=== PATIENT | male | born 1990 | race Caucasian/White ===

== ENCOUNTER 2019-11-03 07:54 | Emergency (ER) | payer MEDICAID ==
[~2019-11-03] VITALS: Ht 167.6 cm; Wt 85.0 kg
[2019-11-03] MEDS ORDERED: CefTRIAXone 1000mg IM Kit (w/lidocaine diluent) IM ONE (08:15)
[2019-11-03] MEDS ORDERED: azithromycin 250mg tablet PO ONE (08:15)
[2019-11-03] MEDS ORDERED: metroNIDAZOLE 500mg tablet PO ONE (08:15)
[2019-11-03 08:23] LABS: CLARITY,URINE CLEAR (Clear); COLOR,URINE YELLOW (Yellow); GLUCOSE, URINE NEGATIVE (Neg); KETONES,URINE NEGATIVE (Neg); LEUKOCYTE ESTERASE ,URINE NEGATIVE (Neg); NITRITES, URINE NEGATIVE (Neg); OCCULT BLOOD,URINE NEGATIVE (Neg); PROTEIN,URINE NEGATIVE (Neg)
[2019-11-03 08:26] LABS: UA COLLECTION TYPE CLN CATCH MIDSTREAM
[2019-11-03] MEDS ORDERED: ACYC-1 PO (09:07)
[2019-11-03 09:25] VITALS: BP 119/68
== END 2019-11-03 09:26 | disposition home or self-care (01) ==
LOC: ER 07:55
DX: A60.01 Herpesviral infection of penis (principal); R52 Pain, unspecified; R30.9 Painful micturition, unspecified; F17.200 Nicotine dependence, unspecified, uncomplicated; Z79.2 Long term (current) use of antibiotics
CPT/HCPCS: 36415; 81003; 87491; 87591; 96372; 99283; J0696; J3490

== ENCOUNTER 2019-12-22 16:51 | Inpatient (IN) | payer MEDICAID ==
[~2019-12-22] VITALS: Ht 170.2 cm; Wt 125.0 kg
[~2019-12-22 16:51] MED LIST: calcium chloride 100 MG/1 ML inj IV ONE; epiNEPHrine 0.1mg/ml 10ml syringe ONE; etomidate 2mg/ml inj. ONE; rocuronium 10mg/ml inj IV ONE; sodium bicarbonate (8.4%) 1 mEq/ml syringe ONE
[2019-12-22] MEDS ORDERED: rocuronium 10mg/ml inj IV ONE (16:56)
[2019-12-22] MEDS ORDERED: etomidate 2mg/ml inj. IV ONE (16:56)
--- NOTE | 2019-12-22 17:04 | NUR ---
GURVINDER MUÑOZ KAT, BRIAN, JOE, CORAL, HEATHER, MELANIE "RT", HEMANT"RT"
[2019-12-22] MEDS ORDERED: normal saline 1000ML IV soln IVB ONE (17:10)
[2019-12-22] MEDS ORDERED: LORazepam 2 mg/ml vial IV ONE (17:15)
[2019-12-22 17:20] LABS: ABG BASE EXCESS -8.2 mmol/L (-2.0-2.0); ABG HCO3 18.1 mmol/L (22.0-26.0); ABG OXYGEN SATURATION 92.1 % (94-97); ABG PCO2 (T) 40.3 mmHg (35.0-48.0); ABG PO2 (T) 73.9 mmHg (75.0-100.0); ALLEN'S TEST POSITIVE; FCOHb 0.4 % (0.0-3.9); FMetHb 0.3 % (0.0-1.5); FO2Hb 91.5 % (94-97); PEEP 5 cm H2O; RESPIRATORY RATE 12 b/min; TIDAL VOLUME 500 mL; TOTAL HEMOGLOBIN 16.8 G/dl (14.0-18.0)
--- NOTE | 2019-12-22 17:30 | NUR ---
Dr Perez made aware of continued high HR 170's, no new orders at this time, will continue to bolus NS IVF.
[2019-12-22 17:36] LABS: CLARITY,URINE CLOUDY (Clear); COLOR,URINE YELLOW (Yellow); GLUCOSE, URINE NEGATIVE (Neg); KETONES,URINE 15 mg/dl (Neg); LEUKOCYTE ESTERASE ,URINE NEGATIVE (Neg); NITRITES, URINE NEGATIVE (Neg); OCCULT BLOOD,URINE SMALL (Neg); PROTEIN,URINE 100 mg/dl (Neg); UROBILINOGEN,URINE 0.2 E.U/dL (0.2-1.0)
[2019-12-22 17:39] LABS: UA COLLECTION TYPE CLN CATCH MIDSTREAM
[2019-12-22] MEDS ORDERED: NO HOME MEDS (17:43)
--- NOTE | 2019-12-22 17:45 | NUR ---
Spoke with patients uncle, Amaury Harper, who stated that he found patient. Patient is currently staying at [facility]. As far as Amaury is concerned patient drank some beers and smoke marijuana today after work. However patient was away from the house for approx. 1.5 hours prior to incident. Amaury stated that he did not believe patient had any medical history or was on any medications. 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 Amaury was informed regarding patients current status and all questions answered at this time.
[2019-12-22 17:48] LABS: URINE AMPHETAMINE SCREEN POSITIVE (Neg); URINE BARBITUATE SCREEN NEGATIVE (Neg); URINE BENZODIAZEPINES SCREEN NEGATIVE (Neg); URINE CANNABINOID SCREEN POSITIVE (Neg); URINE COCAINE SCREEN NEGATIVE (Neg); URINE METHADONE SCREEN NEGATIVE (Neg); URINE OPIATE SCREEN NEGATIVE (Neg); URINE PHENCYCLIDINE SCREEN NEGATIVE (Neg)
[2019-12-22 17:53] LABS: COARSE GRANULAR CAST 0-3 /LPF (NEGATIVE); HYALINE CASTS >30 /LPF (NEGATIVE); MUCUS STRANDS FEW /LPF (Neg); SQUAMOUS EPITHELIAL CELL,UR FEW /LPF (FEW); TRANSITIONAL EPI CELLS,URINE FEW /HPF
[2019-12-22 17:54] LABS: RBC,URINE 20-50 /HPF (0-2)
[2019-12-22] MEDS ORDERED: potassium CL 10mEq/100ml bag 100 ML IV PRN ×2 (17:55)
[2019-12-22] MEDS ORDERED: magnesium Cl slow-release 64mg tablet PO PRN (17:55)
[2019-12-22] MEDS ORDERED: Neutra Phos packet PO PRN (17:55)
[2019-12-22] MEDS ORDERED: potassium Cl 20 mEq SR tablet PO PRN ×2 (17:55)
[2019-12-22] MEDS ORDERED: magnesium 2GM in 50ml NS 50 ML IV PRN (17:55)
[2019-12-22] MEDS ORDERED: sodium phosphate inj. 30 MMOL in dextrose 5%-water 250 ML IV PRN (17:55)
[2019-12-22] MEDS ORDERED: ondansetron/PF 4mg/2ml inj IV PRN (17:55)
[2019-12-22] MEDS ORDERED: magnesium 4gm in 100ml NS 100 ML IV PRN (17:55)
[2019-12-22] MEDS ORDERED: sodium phosphate inj. 15 MMOL in dextrose 5%-water 250 ML IV PRN (17:55)
[2019-12-22] MEDS ORDERED: acetaminophen 325mg tablet PO PRN ×2 (17:55)
[2019-12-22] MEDS ORDERED: magnesium hydroxide 30ml (MOM) UD suspension PO PRN (17:55)
[2019-12-22] MEDS ORDERED: LIDOcaine 2% 10ml TOPICAL JELLY (Urojet) TP ONE (17:55)
[2019-12-22 17:56] LABS: AMORPHOUS URATES 3+; BACTERIA,URINE FEW /HPF (Neg)
[2019-12-22 17:57] LABS: RENAL CELLS, URINE FEW /HPF; WBC,URINE 0-4 /HPF (0-4)
[2019-12-22 18:03] LABS: PARTIAL THROMBOPLASTIN TIME 32 SECONDS (22-32)
[2019-12-22] MEDS ORDERED: acetaminophen 120MG suppository, rectal RC ONE (18:05)
[2019-12-22 18:08] LABS: BASOPHILS % (AUTO) 0.4 % (0-1); EOSINOPHILS % (AUTO) 0.2 % (0-6); HEMATOCRIT 48.4 % (42.0-52.0); HEMOGLOBIN 15.9 g/dl (14.0-17.9); LYMPHOCYTES # (AUTO) 2.1 X10'3 (1.1-4.8); LYMPHOCYTES % (AUTO) 21.6 % (21-51); MEAN CORPUSCULAR HEMOGLOBIN 29.7 PG (27.0-31.0); MEAN CORPUSCULAR HGB CONC 32.9 g/dL (33.0-36.5); MEAN CORPUSCULAR VOLUME 90.2 FL (78-98); MEAN PLATELET VOLUME 8.9 FL (7.4-10.4); MONOCYTES # (AUTO) 0.6 X10'3 (0-0.9); MONOCYTES % (AUTO) 5.7 % (2-12); NEUTROPHILS # (AUTO) 7.1 X10'3 (1.8-7.7); NEUTROPHILS % (AUTO) 72.1 % (42-75); PLATELET COUNT 140 X10'3 (140-440); RED BLOOD COUNT 5.36 X10'6 (4.70-6.10); RED CELL DISTRIBUTION WIDTH 13.8 % (11.5-14.5); WHITE BLOOD COUNT 9.8 X10'3 (4.5-11.0)
[2019-12-22] MEDS ORDERED: acetaminophen 650mg rectal suppository RC ONE (18:10)
--- NOTE | 2019-12-22 18:10 | NUR ---
Patient out to CT on alarm security or surveillance monitor with Sofia RN, RT and rv service technician.
[2019-12-22 18:19] LABS: ALANINE AMINOTRANSFERASE 110 U/L (12-78); ALBUMIN 3.8 G/DL (3.4-5.0); ALBUMIN/GLOBULIN RATIO 1.1 (1.1-1.5); ALKALINE PHOSPHATASE 99 IU/L (46-116); ANION GAP 12 (8-16); ASPARTATE AMINO TRANSFERASE 180 U/L (10-37); BILIRUBIN,TOTAL 0.7 MG/DL (0.1-1.0); BLOOD UREA NITROGEN 37 MG/DL (7-18); CALCIUM 8.6 MG/DL (8.5-10.1); CHLORIDE 112 MMOL/L (99-107); CREATININE 3.37 MG/DL (0.60-1.10); GLUCOSE 62 MG/DL (70-104); POTASSIUM 5.3 MMOL/L (3.5-5.1); SODIUM 147 MMOL/L (135-145); TOTAL CARBON DIOXIDE 22.7 MMOL/L (24-32); TOTAL PROTEIN 7.3 G/DL (6.4-8.2); eGFR 22 ML/MIN
[2019-12-22 18:21] LABS: VALPROATE < 3.0 UG/ML (50-100)
[2019-12-22] MEDS ORDERED: piperacillin/tazo 4.5gm/100ml 100 ML IV SCH (18:23)
[2019-12-22 18:25] LABS: ETHANOL < 0.010 GM/DL (0.0-0.010); TROPONIN I 3.81 NG/ML (0.0-0.05)
[2019-12-22 18:40] LABS: NUCLEATED RED BLOOD CELLS 11 /100WBC (0-0); TOTAL CELLS COUNTED 100
[2019-12-22 18:41] LABS: PLATELET ESTIMATE NORMAL; POLYCHROMASIA FEW
[2019-12-22] MEDS: sodium bicarbonate (8.4%) inj. 150 MEQ in dextrose 5%-water 1,000 ML IV SCH (18:41)
[2019-12-22 18:42] LABS: STOMATOCYTES 2+
--- NOTE | 2019-12-22 18:45 | NUR ---
RT at bedside, SPO2 88%, Dr Peerz aware, order for repeat CXR for placement ordered.
[2019-12-22] MEDS ORDERED: piperacillin/tazo 3.375gm/50ml 50 ML IV STA (18:47)
[2019-12-22] MEDS ORDERED: VANCOMYCIN 1,500MG inj. 1,500 MG in normal saline 500ml IV soln 500 ML IV STA (18:47)
[2019-12-22] MEDS: ipratropium/albuterol 3ml nebule NEB SCH ×2 (18:54→22:52)
[2019-12-22 19:00] LABS: ACETAMINOPHEN < 2.0 UG/ML (10-30); CREATINE KINASE 4844 U/L (39-308)
[2019-12-22] MEDS ORDERED: acetaminophen 1,000mg/100ml IV 100 ML IV ONE (19:00)
[2019-12-22] MEDS ORDERED: heparin 25,000 UNIT/250ml bag 250 ML IV SCH (19:01)
[2019-12-22] MEDS ORDERED: heparin 10,000 units/1 ML INJ IV ONE (19:05)
[2019-12-22] MEDS ORDERED: heparin 10,000 units/1 ML INJ IV PRN (19:05)
--- NOTE | 2019-12-22 19:06 | NUR ---
Dr. Griffith notified that lab will be sending the patient's blood for pathology review due to inclusions within the red blood cells and schuffner's dots and that lab is suspicious of malaria.
--- NOTE | 2019-12-22 19:07 | NUR ---
When pt returned from CT SpO2 was in the mid 80s. Breath sounds were rhonchi, HR 155, temp 41.8. Okayed with ER MD increase of peep to 8, fio2 100%, and repeat chest xray to confirm tube placement. Saturations not improving. Pt had some thin watery secretions. Increased aeration post treatment but still coarse.
[2019-12-22] MEDS ORDERED: DANTROLENE SODIUM IV ONE (19:30)
[2019-12-22] MEDS ORDERED: dantrolene 20mg inj IV ONE (19:30)
--- NOTE | 2019-12-22 19:44 | NUR ---
Patient in room ED 5. I have received report from Gricel FRANK, and had the opportunity to ask questions. Room is set up and ready, awaiting PT arrival;
--- NOTE | 2019-12-22 19:45 | NUR ---
JUNE PHLEBOTOMY SUPPORT TECH MADE AWARE OF PT DECREASING BP, ORDERS TO FOLLOW
[2019-12-22] MEDS ORDERED: heparin, porcine 5000 units/ml vial SQ SCH (20:00)
[2019-12-22] MEDS ORDERED: docusate sod 100mg capsule PO SCH (20:00)
--- NOTE | 2019-12-22 20:32 | NUR ---
ADMINISTERED DANTROLENE 20 MG IV PUSH WITH PHARMACIST DOSING AND JUNE AT BEDSIDE
--- NOTE | 2019-12-22 20:40 | NUR ---
JUNE ORDERD 60 ML ICE WATER ADMINISTER VIA NG.
[2019-12-22 21:00] VITALS: BP 106/26
[2019-12-22 21:04] LABS: ALANINE AMINOTRANSFERASE 350 U/L (12-78); ALBUMIN 3.2 G/DL (3.4-5.0); ALBUMIN/GLOBULIN RATIO 0.8 (1.1-1.5); ALKALINE PHOSPHATASE 123 IU/L (46-116); ANION GAP 17 (8-16); ASPARTATE AMINO TRANSFERASE 799 U/L (10-37); BILIRUBIN,TOTAL 1.3 MG/DL (0.1-1.0); BLOOD UREA NITROGEN 41 MG/DL (7-18); CALCIUM 7.8 MG/DL (8.5-10.1); CHLORIDE 110 MMOL/L (99-107); CREATININE 4.57 MG/DL (0.60-1.10); GLUCOSE 68 MG/DL (70-104); PHOSPHORUS 1.6 MG/DL (2.3-4.5); SODIUM 145 MMOL/L (135-145); TOTAL CARBON DIOXIDE 18.1 MMOL/L (24-32); TOTAL PROTEIN 7.3 G/DL (6.4-8.2); eGFR 15 ML/MIN
[2019-12-22 21:06] LABS: POTASSIUM 5.6 MMOL/L (3.5-5.1)
[2019-12-22] MEDS ORDERED: albuterol 2.5 MG/3 ML nebule CONTNEB STA (21:23)
[2019-12-22] MEDS ORDERED: dextrose 50%-water 50ml dispensing syringe IV ONE (21:25)
[2019-12-22] MEDS ORDERED: insulin regular, human U-100 3ml vial - multi-dose IV ONE (21:25)
[2019-12-22 21:37] LABS: TROPONIN I 114.14 NG/ML (0.0-0.05)
[2019-12-22] MEDS ORDERED: pantoprazole 40 MG vial IV SCH (21:40)
[2019-12-22 22:00] VITALS: BP 111/40
--- NOTE | 2019-12-22 22:00 | NUR ---
PT arrived from ER at 2043. PT transferred over from [facility] to ICU Bed via slide board and placed on bedside monitor. PT tachycardic with HR in 130's, PT is hypotensive with Levo infusing via RT-IJ. O2 sat >95% on 100% FiO2. PT has OG in place to LIS, brick red color drainage noted in tubing. PT Hyper thermic and Maglignant Hyperthermia protocol started down in ED and received 2 doses of Dantrolene. PT placed on Arctic Sun set to Normothermic. Jacobo in place, 15ml kacy colored urine in urometer. Bed is locked and low. Will continue to monitor.
[2019-12-22 22:10] LABS: OXYGEN SATURATION (MIXED VEN) 79.6 % (60-80)
[2019-12-22] MEDS ORDERED: sodium polystyrene sulfonate 15gm/60ml oral suspension PO ONE (22:10)
[2019-12-22] MEDS ORDERED: glucagon, human recombinant 1mg kit SUBCUT PRN (22:15)
[2019-12-22] MEDS ORDERED: dextrose 50%-water 50ml dispensing syringe IV PRN (22:15)
[2019-12-22 23:00] VITALS: BP 94/46
[2019-12-22] MEDS: FENTANYL-0.9 % NACL/PF 100 ML IV PRN (23:18)
[2019-12-22] MEDS: midazolam 100mg in NS 100ml 100 ML IV PRN (23:20)
[2019-12-22] MEDS: NORepinephrine 8mg/ 250ml NS 250 ML IV PRN (23:21)
[2019-12-23] VITALS (8 sets, daily range): BP systolic 59–99; BP diastolic 27–55
--- NOTE | 2019-12-23 | NUR ---
Call placed after sending a message to Pharmacy d/t still not receiving Kayexalate and order was place @ 9692. Pharmacist stated it will be brought up. Will administer the med as soon as it is available.
[2019-12-23] MEDS: NORepinephrine 8mg/ 250ml NS 250 ML IV PRN ×2 (00:37→03:34)
[2019-12-23] MEDS: dextrose 50%-water 50ml dispensing syringe IV PRN ×2 (00:39→05:55)
[2019-12-23 01:01] LABS: ALBUMIN 2.7 G/DL (3.4-5.0); ANION GAP 19 (8-16); BLOOD UREA NITROGEN 44 MG/DL (7-18); BUN/CREATININE RATIO 8.2 (5.4-32.0); CALCIUM 7.7 MG/DL (8.5-10.1); CHLORIDE 111 MMOL/L (99-107); CREATININE 5.37 MG/DL (0.60-1.10); GLUCOSE 59 MG/DL (70-104); SODIUM 148 MMOL/L (135-145); TOTAL CARBON DIOXIDE 17.9 MMOL/L (24-32); eGFR 13 ML/MIN
[2019-12-23 01:02] LABS: PHOSPHORUS 1.3 MG/DL (2.3-4.5); POTASSIUM 3.6 MMOL/L (3.5-5.1)
[2019-12-23] MEDS: FENTANYL-0.9 % NACL/PF 100 ML IV PRN ×2 (01:21→05:34)
--- NOTE | 2019-12-23 02:21 | NUR ---
Arctic Sun machine turned off d/t continuing to cool PT even though the setting is set to Normothermia with a Target temp of 37.0 and actual PT temp is. 35.9. Will continue to monitor.
[2019-12-23] MEDS ORDERED: aspirin 81mg tab.chew NG ONE (02:40)
[2019-12-23] MEDS: ipratropium/albuterol 3ml nebule NEB SCH ×2 (03:03→07:35)
[2019-12-23 03:22] LABS: HEMOGLOBIN 16.1 g/dl (14.0-17.9); MEAN CORPUSCULAR HEMOGLOBIN 29.5 PG (27.0-31.0)
[2019-12-23 03:24] LABS: HEMATOCRIT 50.4 % (42.0-52.0); MEAN CORPUSCULAR HGB CONC 31.9 g/dL (33.0-36.5); MEAN CORPUSCULAR VOLUME 92.6 FL (78-98); MEAN PLATELET VOLUME 8.3 FL (7.4-10.4); PLATELET COUNT 58 X10'3 (140-440); RED BLOOD COUNT 5.45 X10'6 (4.70-6.10); RED CELL DISTRIBUTION WIDTH 14.9 % (11.5-14.5); WHITE BLOOD COUNT 22.6 X10'3 (4.5-11.0)
[2019-12-23] MEDS: sodium bicarbonate (8.4%) inj. 150 MEQ in dextrose 5%-water 1,000 ML IV SCH (03:36)
[2019-12-23 03:49] LABS: ALANINE AMINOTRANSFERASE 929 U/L (12-78); ALBUMIN 1.8 G/DL (3.4-5.0); ALBUMIN/GLOBULIN RATIO 0.5 (1.1-1.5); ALKALINE PHOSPHATASE 147 IU/L (46-116); ANION GAP 20 (8-16); BILIRUBIN,TOTAL 1.1 MG/DL (0.1-1.0); BLOOD UREA NITROGEN 43 MG/DL (7-18); BUN/CREATININE RATIO 7.3 (5.4-32.0); CALCIUM 7.3 MG/DL (8.5-10.1); CHLORIDE 112 MMOL/L (99-107); CREATININE 5.86 MG/DL (0.60-1.10); GLUCOSE 80 MG/DL (70-104); MAGNESIUM 2.6 MG/DL (1.5-2.4); SODIUM 149 MMOL/L (135-145); TOTAL CARBON DIOXIDE 17.1 MMOL/L (24-32); TOTAL PROTEIN 5.3 G/DL (6.4-8.2); eGFR 11 ML/MIN
[2019-12-23 03:52] LABS: PHOSPHORUS 1.6 MG/DL (2.3-4.5); POTASSIUM 3.3 MMOL/L (3.5-5.1)
[2019-12-23 04:05] LABS: PLATELET ESTIMATE DECREASED; POLYCHROMASIA FEW; STOMATOCYTES 1+; TOTAL CELLS COUNTED 100
[2019-12-23 04:24] LABS: ASPARTATE AMINO TRANSFERASE 2265 U/L (10-37)
[2019-12-23 04:40] LABS: ABG BASE EXCESS -18.2 mmol/L (-2.0-2.0); ABG HCO3 11.3 mmol/L (22.0-26.0); ABG OXYGEN SATURATION 93.5 % (94-97); ABG PCO2 (T) 35.5 mmHg (35.0-48.0); ABG PO2 (T) 77.9 mmHg (75.0-100.0); ALLEN'S TEST POSITIVE; FMetHb 0.3 % (0.0-1.5); FO2Hb 93.2 % (94-97); PATIENT TEMPERATURE 34.7; PEEP 8 cm H2O; RESPIRATORY RATE 12 b/min; TIDAL VOLUME 500 mL; TOTAL HEMOGLOBIN 16.9 G/dl (14.0-18.0)
[2019-12-23] MEDS ORDERED: NORepinephrine 32 MG in Normal Saline 250ml IV soln IV SCH (04:45)
[2019-12-23 04:46] LABS: TROPONIN I 453.42 NG/ML (0.0-0.05)
--- NOTE | 2019-12-23 04:46 | NUR ---
Received call form lab and PT's PTT value is unreadable. Informed PRE K LEAD TEACHER Vanessa, received order to hold heparin gtt for 2 hrs and recheck. Heparin gtt is off and will continue to monitor.
--- NOTE | 2019-12-23 05:09 | NUR ---
Received call back from Arcelia, Nurse from [facility]. She inquired about the PT's current temp and it is 35.4. She stated to change the setting over from Normothermic to the Rewarming phase of the Hypothermic selection. Made the changes and will continue to monitor.
[2019-12-23] MEDS ORDERED: vasopressin inj. 40 UNIT in normal saline 50ml IV soln 38 ML IV SCH (06:30)
--- NOTE | 2019-12-23 06:30 | NUR ---
SHIRA Mendez called d/t PT BP continuing to decrease even with the Levo being changed over to Quad strength and titrating up. Leco is currently running @ 0.7mcg/kg/min with a BP of 66/40. Order received to start Vasopressin. Order placed and awaiting med to arrive from Pharmacy.
--- NOTE | 2019-12-23 06:30 | NUR ---
Received report from Veronica FRANK and assumed care of patient in 2042.
[2019-12-23] MEDS: midazolam 100mg in NS 100ml 100 ML IV PRN (06:41)
--- NOTE | 2019-12-23 06:43 | NUR ---
Problems reprioritized. Patient report given, questions answered & plan of care reviewed with Nedra FRANK.
[2019-12-23] MEDS ORDERED: epiNEPHrine inj 5 MG, calcium chloride inj. 1,000 MG in normal saline 250ml IV soln 250 ML IV PRN ×2 (07:31→07:35)
[2019-12-23] MEDS ORDERED: epiNEPHrine inj 5 MG, calcium chloride inj. 1,000 MG in normal saline 250ml IV soln 235 ML IV PRN (07:46)
[2019-12-23] MEDS ORDERED: pantoprazole 40 MG vial IV SCH (08:00)
[2019-12-23] MEDS ORDERED: aspirin 81mg tab.chew NG SCH (08:30)
--- NOTE | 2019-12-23 08:46 | NUR ---
Patient BP was marginal (60s/40s) with Levophed (quad) going at 0.65 and climbing and off going nurse received order for Vasopressin which was brought up and started rapidly. paitient BP jostin to high 60s/40s, but it wasn't enough to maintain perfusion. Dr. Mccord was called at this time and the order was received to start Epical. Levophed was maxed at this time, Vasopressin was maxed, and pharmacy was messaged for a stat order of Epical. Epical was started, however at 0758, patient HR started dropping from 118 to 100 to 80s to 60s getting progressively wider until a code was called at 0758. Dr. Tavares from ED ran code, multiple rounds of CPR, CaClx1, D50x1, Epix4. Amaury, patient's uncle, was called at 0810 and told he needed to come in emergently, patient was coding and prognosis was poor. Code was stopped at 0815 when after the fourth round of CPR and Epi resulted nothing. Dr. Mccord was called at 0820 and updated to the situation. Amaury, patient's uncle, made it to bedside at 0830 and was allowed to patient's bedside. Amaury requesting patient be sent to [facility] in [place], [place].
--- NOTE | 2019-12-23 09:42 | NUR ---
[place] [facility] [place] [facility] [place] No belongings released as there were none.
[2019-12-23] MEDS ORDERED: DANTROLENE SODIUM IV ONE (09:55)
[2019-12-23] MEDS ORDERED: VANCOMYCIN 1,500MG inj. 1,500 MG in normal saline 500ml IV soln 500 ML IV SCH (19:00)
[2019-12-23] MEDS ORDERED: mineral oil/petrolatum ophthal oint EACHEYE SCH (20:00)
[2019-12-24] MEDS ORDERED: bisacodyl 10mg suppository rectal RC PRN (17:55)
== END 2019-12-23 09:45 | disposition expired | DRG 812 ==
LOC: ER 16:51 → ED HOLD 17:55 → ICU 2S 21:27
PROVIDERS: ADMIT Internal Medicine Critical Care Medicine; ATTEND Internal Medicine Critical Care Medicine
PROC: 5A1935Z Respiratory Ventilation, Less than 24 Consecutive Hours (ICD-10-PCS; principal; 2019-12-22)
PROC: 0BH17EZ Insertion of Endotracheal Airway into Trachea, Via Natural or Artificial Opening (ICD-10-PCS; 2019-12-22)
PROC: 02HV33Z Insertion of Infusion Device into Superior Vena Cava, Percutaneous Approach (ICD-10-PCS; 2019-12-22)
PROC: B548ZZA Ultrasonography of Superior Vena Cava, Guidance (ICD-10-PCS; 2019-12-22)
PROC: 5A12012 Performance of Cardiac Output, Single, Manual (ICD-10-PCS; 2019-12-23)
DX: T50.902A Poisoning by unspecified drugs, medicaments and biological substances, intentional self-harm, initial encounter (principal); A41.9 Sepsis, unspecified organism; J96.01 Acute respiratory failure with hypoxia; J69.0 Pneumonitis due to inhalation of food and vomit; R65.21 Severe sepsis with septic shock; I21.4 Non-ST elevation (NSTEMI) myocardial infarction; G92 Toxic encephalopathy; N17.9 Acute kidney failure, unspecified; D68.9 Coagulation defect, unspecified; I42.7 Cardiomyopathy due to drug and external agent; F15.10 Other stimulant abuse, uncomplicated; R40.20 Unspecified coma; R57.0 Cardiogenic shock; R68.0 Hypothermia, not associated with low environmental temperature; Z20.828 Contact with and (suspected) exposure to other viral communicable diseases; Y92.89 Other specified places as the place of occurrence of the external cause
CPT/HCPCS: 31500; 36415; 36556; 36600; 70450; 71045; 71250; 72125; 74176; 80053; 80069; 80164; 80305; 80320; 80329; 81001; 82140; 82330; 82550; 82803; 82810; 82948; 83605; 83735; 84100; 84145; 84443; 84484; 85018; 85025; 85610; 85730; 87040; 87070; 87081; 87635; 93005; 93308; 94002; 94003; 94640; 94760; 96361; 96374; 99291; 99292; C9113; G0378; J0131; J0171; J1644; J1815; J2060; J2543; J3010; J3370; J3490; J7030; J7040; J7050